=== PATIENT | male | born 1940 | race Caucasian/White ===

== ENCOUNTER → 2017-05-22 | Outpatient (CLI) | payer OTHER ==
[~2017-05-22] VITALS: Ht 182.9 cm; Wt 70.3 kg
[~2017-05-22] MED LIST: ALDACTONE25 MG PO; ALLOPURINOL 10100 M1 PO; ATIVAN0.5 MG PO; COLACE 100 MG100 MG PO; COLCHICINE 0.60.6 M1; COLCHICINE0.6 MG PO; DILTIAZEM 24HR240 M2 PO; DILTIAZEM 24HR240 MG; KRISTALOSE10 GM PO; LACTULOSE10 GM/152 PO; LACTULOSE10 GM/153 PO; LASIX 20 MG TAB20 MG PO; LIPITOR40 MG PO; MIRALAX17 GM PO; NORCO 5-325 TA1 EACH PO; PANTOPRAZOLE SO40 M1 PO; PREDNISONE 20 M20 M1 PO; PROPRANOLOL 1010 MG PO; PROPRANOLOL PO; PROTONIX40 M1 PO; TYLENOL EXTRA500 MG PO; VICODIN 5-5001 EACH PO
== END | disposition home or self-care (01) ==
LOC: GI 06:20
DX: K22.2 Esophageal obstruction (principal); I85.00 Esophageal varices without bleeding; K76.6 Portal hypertension; K31.89 Other diseases of stomach and duodenum; K44.9 Diaphragmatic hernia without obstruction or gangrene; I10 Essential (primary) hypertension; K21.9 Gastro-esophageal reflux disease without esophagitis; K74.69 Other cirrhosis of liver; F41.8 Other specified anxiety disorders; Z87.891 Personal history of nicotine dependence; Z98.890 Other specified postprocedural states; M10.9 Gout, unspecified; M19.90 Unspecified osteoarthritis, unspecified site; Z98.41 Cataract extraction status, right eye; Z98.42 Cataract extraction status, left eye; Z96.1 Presence of intraocular lens
CPT/HCPCS: 62110; 62900

== ENCOUNTER → 2018-03-14 | Outpatient (CLI) | payer OTHER | LOC: ULTRA 07:08 | DX: K76.0 Fatty (change of) liver, not elsewhere classified (principal); N18.3 Chronic kidney disease, stage 3 (moderate); K70.30 Alcoholic cirrhosis of liver without ascites ==

== ENCOUNTER 2019-02-22 10:06 | Inpatient (IN) | payer OTHER ==
[2019-02-22] VITALS (7 sets, daily range): BP systolic 93–149; BP diastolic 39–74
[~2019-02-22] VITALS: Ht 188 cm; Wt 68.1 kg
--- NOTE | ~2019-02-22 | P ---
[facility] [place] [address] PROCEDURE REPORT Name: EVIE JOLLEY Room #: 421-P [facility] IN M.R.#: [id number] Admission: 02/22/19 ������������������ Attend Phys: Wolfgang Ro Discharge: 02/25/19 ������������������ Date of : 38 Report #: [id number] THIS REPORT FOR: //name// CC: Mathew Ro DATE OF SERVICE: 02/25/2019 INPATIENT UPPER ENDOSCOPY: BRIEF HISTORY: The patient is a 71-year-old male with known history of cirrhosis and esophageal varices with previous banding of esophageal varices, who presented with marked iron deficiency anemia requiring blood transfusion. He has not observed overt gastrointestinal bleeding. POSTOPERATIVE DIAGNOSES: 1. Grade 0 esophageal varices, nonbleeding. 2. Scarring distal esophagus from previous banding of varices. 3. A 3 cm sliding type hiatus hernia. 4. Patchy erythematous gastritis. 5. Mild Schatzki ring. MEDICATIONS: Deep sedation with propofol per anesthesia. SPECIMEN: Small bowel biopsies to rule out celiac disease. ESTIMATED BLOOD LOSS: 3 mL. PROCEDURE: EGD with biopsy. FINDINGS: Prior to propofol sedation, procedure of upper endoscopy and possible banding esophageal varices were discussed with the patient as well as potential risks and its complications. He indicates he understands and desires to proceed. DESCRIPTION OF PROCEDURE: With the patient in left lateral decubitus position, the Olympus video endoscope was inserted in cervical esophagus under vision without difficulty. Examination of this organ through its entire length revealed intact esophageal mucosa into the distal esophagus. In the distal esophagus, upon very careful and close inspection, we could see a very slight hint of esophageal varices. They were not bulging of the lumen whatsoever. There were no stigmata of recent bleeding. There was scarring in the distal esophagus, which was well healed from his previous banding of esophageal varices. The squamocolumnar junction was inspected and once again, no varices were seen. A mild Schatzki ring which had been previously noted was seen. [facility] [address] [place] [address] PROCEDURE REPORT Name: EVIE JOLLEY Room #: 421-P [facility] IN M.R.#: [id number] Admission: 02/22/19 ������������������ Attend Phys: Wolfgang Ro Discharge: 02/25/19 ������������������ Date of : 38 Report #: [id number] scope was advanced into a 3 cm sliding type hiatus hernia. The mucosa and hernia was normal. The scope was advanced in the stomach, was examined on end view as well as retroflexed views. There was patchy erythema in the antrum, but no ulcers or erosions were seen. Upon retroflexion, the hiatus hernia was seen. No other abnormalities were seen. No mass lesions were seen. Gastric varices were not seen. The pylorus was normal, duodenal bulb and postbulbar duodenal sweep down to the third portion was unremarkable. However, in view of his marked iron deficiency anemia, multiple small bowel biopsies obtained to evaluate for celiac disease. At that point, the scope was slowly withdrawn and careful circumferential views obtained. The varices were minimal and banding is not indicated at this time. He does have a Schatzki ring, but has no complaints of dysphagia in view of his known history of portal hypertension and esophageal varices, dilation was not undertaken at this time, but could be considered in the future if dysphagia becomes a problem. No sites of obvious recent bleeding. He is markedly microcytic, so he probably had an occult blood loss. Hemodynamically stable at this point in time. Therefore, consider further evaluation as outpatient such as colonoscopy and even potentially a capsule endoscopy. He should consider his propranolol for prophylaxis for esophageal varices and potential GI bleeding. He should return for followup for surveillance as he is obvious for varices, possibly 1 year. The patient will follow up with Dr. Manjeet Salter. ��������������������������������������������� ���������������������������������������� By: ��������������������������������������������� 1220 0233 Joey Nieto MD /nt
[2019-02-22 10:43] LABS: MCH 17.9 pg (26.0-34.0)
[2019-02-22 10:45] LABS: MCHC 28.8 g/dL (28.0-37.0); MCV 62.1 fL (80.0-100.0); PLATELET COUNT 203 thou/uL (150-400); RDW 19.1 % (10.5-14.5); WBC 4.2 thou/uL (4.0-11.0)
[2019-02-22 10:46] LABS: HEMATOCRIT 17.4 % (42.0-52.0)
[2019-02-22 10:52] LABS: CALCIUM 8.8 mg/dL (8.5-10.1); CREATININE 2.3 mg/dL (0.7-1.3); POTASSIUM 4.6 mmol/L (3.5-5.1)
[2019-02-22 10:55] LABS: % SATURATION 3 % (20-39); APTT 28.5 Seconds (24.5-32.8); INR 1.1; IRON 12 ug/dL (65-175); PROTIME 11.4 Seconds (9.3-11.4); TIBC 480 ug/dL (250-450)
[2019-02-22 10:56] LABS: ALBUMIN 3.7 g/dL (3.4-5.0); DIRECT BILIRUBIN 0.2 mg/dL (<0.1-0.3); TOTAL BILIRUBIN 0.4 mg/dL (<0.1-1.0); TOTAL PROTEIN 7.9 g/dL (6.4-8.2)
[2019-02-22 11:30] LABS: ABSOLUTE NEUTROPHILS 2.4 thou/uL (1.4-8.2)
[2019-02-22 11:31] LABS: ANISOCYTOSIS 2+
[2019-02-22 11:35] LABS: OVALOCYTES 1+
[2019-02-22 11:36] LABS: HYPOCHROMASIA 1+; MICROCYTES 2+
[2019-02-22 11:38] LABS: SCHISTOCYTES OCCASIONAL
[2019-02-22 11:39] LABS: POLYCHROMASIA SLIGHT
[2019-02-22 11:42] LABS: ABSOLUTE RETIC COUNT 0.0641 10^6/uL; OBSERVED RETIC COUNT 2.31 % (0.6-2.6)
[2019-02-22 12:10] LABS: FOLIC ACID 15.1 ng/mL (8.6-58.9); TSH 1.102 uIU/mL (0.358-3.740)
[2019-02-22 12:24] LABS: URINE BILIRUBIN NEGATIVE (Negative); URINE BLOOD NEGATIVE (Negative); URINE CLARITY CLEAR; URINE COLOR YELLOW; URINE GLUCOSE-RANDOM* NEGATIVE (Negative); URINE KETONES NEGATIVE (Negative); URINE LEUKOCYTES-REFLEX NEGATIVE (Negative); URINE NITRITE-REFLEX NEGATIVE (Negative); URINE PROTEIN (DIPSTICK) NEGATIVE (Negative); URINE SPECIFIC GRAVITY 1.015 (1.005-1.035); URINE UROBILINOGEN 0.2 E.U./dl (0.2-1.0)
[2019-02-22 12:28] LABS: URINE CREATININE-RANDOM* 147.2 mg/dL
--- NOTE | 2019-02-22 17:08 | NUR ---
RECEIVED PT APPROX 1630. A/O. DENIES PAIN. NO SOA. NO NV. VERBALIZED FEELING BETTER AFTER 1ST TRANSFUSION. PT RESTING IN BED APPEARS COMFORTABLE. CRITICAL LAB HGB 5.8- AIRMAILED DR. RAMIREZ- WAITING FOR ORDERS. WILL CONT. TO MONITOR.
--- NOTE | 2019-02-22 18:07 | NUR ---
ORDERS FOR BLOOD OBTAINED. WAITING FOR BLOOD TO BE READY FROM BLOOD BANK. WILL CONT. TO MONITOR.
[2019-02-22 19:07] LABS: HEMOGLOBIN 4.8 g/dL (13.0-17.7)
[2019-02-23 00:04] LABS: HEMOGLOBIN 6.7 gm/dL (14.0-18.0); MCH 21.3 pg (26.0-34.0); MCHC 32.2 g/dL (28.0-37.0); MCV 66.2 fL (80.0-100.0); RBC 3.17 mil/uL (4.50-6.00); RDW 21.3 % (10.5-14.5); WBC 3.9 thou/uL (4.0-11.0)
[2019-02-23 02:45] VITALS: BP 139/60; BP 147/64; BP 153/70
--- NOTE | 2019-02-23 04:05 | NUR ---
PT AMBULATING TO BATHROOM INDEPENDENTLY AND IS TOLERATING WELL. DENIES PAIN. RECIEVED 1 UNIT OF BLOOD IN ER AND 2 ON UNIT. RESTING COMFORTABLY. NO NEEDS VOICED. CALL LIGHT WITHIN REACH. WILL CONTINUE TO PROVIDE FREQUENT OBSERVATION.
[2019-02-23 06:31] LABS: HEMATOCRIT 23.5 % (42.0-52.0); HEMOGLOBIN 7.3 gm/dL (14.0-18.0)
[2019-02-23 07:20] VITALS: BP 45/61
[2019-02-23 07:25] VITALS: BP 145/61
--- NOTE | 2019-02-23 10:31 | EKG ---
[address] [employer] [place] [address] ELECTROCARDIOGRAM REPORT Name: SAMREENEVIE John Room #: 421-P ADM IN M.R.#: [id number] ������������������ Admission: 02/22/19 ������������������ Attend Phys: Wolfgang Ro Discharge: ������������������ Date of : 38 Report #: [id number] ����������������������������������������������������������������� [id number] THIS REPORT FOR: //name// [facility] ED Test Date: 2019-02-22 Test Time: 10:25:46 Pat Name: EVIE JOLLEY Department: Room: 421 Gender: M Compounder: lucila : 1940 Requested By: Elliot Ritchie Order Number: [id number] MD: Anand Cota Measurements Intervals [place] Rate: 70 P: 64 AK: 182 QRS: 46 QRSD: 92 T: 54 QT: 408 QTc: 441 Interpretive Statements Sinus rhythm Baseline wander in lead(s) V2,V3 Compared to ECG 03/30/2013 09:40:36 Atrial fibrillation no longer present Electronically Signed On 02-23-2019 10:31:29 CDT by Anand Cota [email or web address] ��������������������������������������������� <ELECTRONICALLY SIGNED> ���������������������������������������� By: Anand Cota MD ��������������������������������������������� 02/23/19 1031 1025 1025 MD CASIE Haley
--- NOTE | 2019-02-23 16:51 | NUR ---
ASSUMED PATIENT CARE AT 0700. A/O X4. PLEASANT. DENIES PAIN. NO BLEEDING NOTED. UP AD CONCETTA. PRGRESSING TOWARDS POC GOALS.
[2019-02-23 21:16] VITALS: BP 158/66
--- NOTE | 2019-02-24 02:40 | NUR ---
PT AMBULATING TO BATHROOM INDEPENDENTLY AND IS TOLERATING WELL. DENIES PAIN. RESTING COMFORTABLY. NO NEEDS VOICED. CALL LIGHT WITHIN REACH. WILL CONTINUE TO PROVIDE FREQUENT OBSERVATION.
[2019-02-24 03:44] VITALS: BP 123/59
[2019-02-24 05:26] LABS: HEMATOCRIT 23.1 % (42.0-52.0); HEMOGLOBIN 7.2 gm/dL (14.0-18.0); MCH 21.2 pg (26.0-34.0); MCHC 31.2 g/dL (28.0-37.0); MCV 68.1 fL (80.0-100.0); RBC 3.39 mil/uL (4.50-6.00); RDW 23.5 % (10.5-14.5); WBC 4.2 thou/uL (4.0-11.0)
[2019-02-24 05:39] LABS: ALBUMIN 3.2 g/dL (3.4-5.0); CALCIUM 8.2 mg/dL (8.5-10.1); CREATININE 1.5 mg/dL (0.7-1.3); PHOSPHORUS 3.1 mg/dL (2.5-4.9); POTASSIUM 4.1 mmol/L (3.5-5.1)
[2019-02-24 08:02] VITALS: BP 147/76
[2019-02-24 12:03] LABS: HEMATOCRIT 23.9 % (42.0-52.0); HEMOGLOBIN 7.5 gm/dL (14.0-18.0)
--- NOTE | 2019-02-24 15:08 | NUR ---
PT ADMITTED RELATED TO ANEMIA. CM REVIEWED CHART AND SPOKE WITH CARE TEAM. CM MET WITH PT AT BEDSIDE THIS DAY. PT IS A&O X4. CM ROLE INTRODUCED. PT INDICATED HE LIVES IN AN APARTMENT WITH HIS WITH NO STEPS TO ENTER AND NO STEPS INSIDE. 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 PT INDICATED HE PLANS TO RETURN HOME ONCE MEDICALLY STABLE. CM TO FOLLOW INDICATED WITH DC PLANNING.
[2019-02-24 16:07] VITALS: BP 141/71
--- NOTE | 2019-02-24 18:25 | NUR ---
PT ASSESSED AT START OF SHIFT. PT HAS NOT HAD A BM TODAY TO OBTAIN SPECIMEN. NO SIGNS OF GI BLEED. ABD ULTRASOUND DONE. PLAN FOR EGD IN AM PER DR. OSPINA. NO C/O PAINS. AMBULATED W/ THERAPY AND DID WELL. IV IRON GIVEN.
[2019-02-24 22:26] VITALS: BP 138/59
[2019-02-24 23:26] LABS: HEMOGLOBIN 7.7 gm/dL (14.0-18.0)
--- NOTE | 2019-02-25 02:47 | NUR ---
ASSUMED CARE AT 1900, ASSESSMENT COMPLETED. PT DENIES PAIN, NAUSEA, OR SOB. IV FLUIDS INFUSING. DISCUSSED NEED FOR A STOOL SAMPLE; GAVE PT A DOSE OF MIRALAX IN APPLE JUICE, HE DRANK ABOUT HALF OF IT AND THEN C/O "BURNING" IN HIS STOMACH AND COULDN'T FINISH THE DOSE. TOLERATED WATER AFTER, NO FURTHER C/O NAUSEA OR HEARTBURN. NO STOOL SAMPLE SO FAR. NPO AT MIDNIGHT FOR EGD IN AM. LATER C/O HEADACHE, GIVEN TYLENOL. NO OTHER CONCERNS, WILL CONTINUE TO MONITOR.
[2019-02-25 05:00] VITALS: BP 140/73
[2019-02-25 07:48] VITALS: BP 132/63
[2019-02-25] MEDS ORDERED: NIFEREX TABLET1 EACH PO (10:21)
[2019-02-25 11:35] LABS: HEMATOCRIT 25.7 % (42.0-52.0); HEMOGLOBIN 7.8 gm/dL (14.0-18.0)
[2019-02-25 14:11] VITALS: BP 132/63
[2019-02-25 15:27] VITALS: BP 132/63
--- NOTE | 2019-02-25 15:28 | NUR ---
PT DISCHARGED AT THIS TIME. IV ACSESS DCD. ALL BELONGINGS PACKED AND SET WITH PATIENT. RX'S SENT WITH PATIENT. DISCHARGE PAPERS GONE OVER WITH PATIENT. SIGNED AND COPY IN CHART.SON HERE TO DRIVE PATIENT HOME. PT W/O PAIN OR RESP DISTRESS AT DISCHARGE.
--- NOTE | 2019-02-27 13:06 | PATH ---
[facility] [address] [address] PATHOLOGY RPT PROCEDURE Name: EVIE JOLLEY Room #: 421-P DIS IN M.R.#: [id number] ������������������ Admission: 02/22/19 ������������������ Date of : 38 Discharge: 02/25/19 Report #: [id number] Path Case #: [id number] [facility] Accession Number: [id number] . 01 Material submitted: . small bowel - BX SMALL BOWEL RULE OUT CELIAC DZ . 01 Clinical history: . Preop DX: Anemia Postop DX: Hiatus hernia, Schatzki's ring, esophageal varices, gastritis R/O celiac dz . 02 Diagnosis: Small bowel mucosa, small bowel rule out celiac disease, endoscopic biopsy: - Focal fundic-type metaplasia associated with mild non-specific acute inflammation, compatible with mild peptic duodenitis. - Negative for villous blunting or increase in intraepithelial lymphocytes. (IUV/db; 02/27/2019) LBQ/02/27/2019 . 02 Electronically signed: . Kusum Cote MD, Pathologist NPI- [id number] . 01 Gross description: . Received in formalin labeled "Evie Jolley, Bx sm bowel R/O celiac," are eight segments of chairez soft tissue measuring 1.0 x 0.6 x 0.2 cm in aggregate dimensions and ranging from 0.1 to 0.4 cm in maximum dimension. The specimen is submitted entirely in cassette A1. (DAC; 02/26/2019) XDC/XDC . 02 Pathologist provided ICD-10: K29.80 . 02 CPT . 113950 Specimen Comment: A courtesy copy of this report has been sent to Specimen Comment: [phone], , . Specimen Comment: Report sent to ,DR RAMIREZ / DR ASHRAF Performed at: [address] [facility] [address] [id number] MD Vahe Kirk MD Phone: [phone] Performed at: 02 [place] [address] PATHOLOGY RPT PROCEDURE Name: EVIE JOLLEY Room #: 421-P DIS IN M.R.#: [id number] ������������������ Admission: 02/22/19 ������������������ Date of : 38 Discharge: 02/25/19 Report #: [id number] Path Case #: [id number] [facility] [address], [place], [place] [id number] MD Kusum Cote MD Phone: [phone]
== END 2019-02-25 15:25 | disposition home or self-care (01) | DRG 811 ==
LOC: ER 10:06 → EROBS 11:26 → 4E 11:26 → ENTRNSPT 02-25 15:11 → EDTRNSPTSTS 02-25 15:20 → 4E 02-25 15:25
PROVIDERS: Emergency Medicine; Nurse Practitioner; ADMIT Hospitalist
PROC: 30233N1 Transfusion of Nonautologous Red Blood Cells into Peripheral Vein, Percutaneous Approach (ICD-10-PCS; principal; 2019-02-22)
PROC: 0DB98ZX Excision of Duodenum, Via Natural or Artificial Opening Endoscopic, Diagnostic (ICD-10-PCS; 2019-02-25)
DX: D50.9 Iron deficiency anemia, unspecified (principal); N17.0 Acute kidney failure with tubular necrosis; I85.00 Esophageal varices without bleeding; K29.70 Gastritis, unspecified, without bleeding; M10.9 Gout, unspecified; I10 Essential (primary) hypertension; F41.9 Anxiety disorder, unspecified; I27.20 Pulmonary hypertension, unspecified; M19.90 Unspecified osteoarthritis, unspecified site; K57.30 Diverticulosis of large intestine without perforation or abscess without bleeding; I70.0 Atherosclerosis of aorta; I77.811 Abdominal aortic ectasia; K44.9 Diaphragmatic hernia without obstruction or gangrene; K22.2 Esophageal obstruction; K70.30 Alcoholic cirrhosis of liver without ascites; Z98.42 Cataract extraction status, left eye; Z91.013 Allergy to seafood; Z98.41 Cataract extraction status, right eye; Z87.891 Personal history of nicotine dependence; Z90.49 Acquired absence of other specified parts of digestive tract; Z79.899 Other long term (current) drug therapy; Z86.010 Personal history of colon polyps
CPT/HCPCS: 10183; 62110; 62900; 70005

== ENCOUNTER → 2020-03-08 | Outpatient (CLI) | payer OTHER ==
[~2020-03-08] MED LIST changes: +NIFEREX TABLET1 EACH PO
== END ==
LOC: ULTRA 01-13 10:33
DX: K70.30 Alcoholic cirrhosis of liver without ascites (principal); Z90.49 Acquired absence of other specified parts of digestive tract